=== PATIENT | male | born 1960 | race Caucasian/White ===

== ENCOUNTER 2019-07-01 14:54 | Emergency (ER) | payer BC ==
[2019-07-01] MEDS ORDERED: Diphtheria,Pertussis(Acell),Tetanus Vaccine 0.5 ML SDV IM ONE (15:41)
--- NOTE | 2019-07-02 07:11 | ER ---
DATE SEEN: 07/01/2019 REASON FOR VISIT: Laceration repair. HISTORY OF PRESENT ILLNESS: This is a 59-year-old male who had a table saw cut his left thumb. He has a 2 cm laceration of the pulp of the left thumb. He does not remember his last tetanus. ALLERGIES: Reviewed. PHYSICAL EXAMINATION: VITAL SIGNS: He is afebrile and blood pressure is normal. EXTREMITIES: Left thumb reveals a circular 2 cm sized laceration to the palmar aspect of the left thumb. IMPRESSION: Simple laceration. PLAN: Digital block was obtained with 2% lidocaine. I placed 6 stitches of 3-0 Ethilon with no complications. /[id number] WANDA/ZHEN
== END 2019-07-01 15:40 | disposition home or self-care (01) ==
LOC: FB.ED 14:54
DX: S61.012A Laceration without foreign body of left thumb without damage to nail, initial encounter (principal); Z23 Encounter for immunization; W31.2XXA Contact with powered woodworking and forming machines, initial encounter
CPT/HCPCS: 12001; 90471; 90715; 99282-25